=== PATIENT | female | born 1990 | race Caucasian/White ===

== ENCOUNTER 2020-05-14 20:05 | Emergency (ER) | payer MEDICAID ==
[~2020-05-14] VITALS: Ht 160 cm; Wt 68.0 kg
[2020-05-14 20:20] VITALS: Ht 160 cm; Wt 68.0 kg
[2020-05-14] MEDS ORDERED: IBU600 M2 PO (22:15)
[2020-05-14] MEDS ORDERED: FLE10 PO (22:15)
[2020-05-14 22:17] VITALS: BP 104/56
== END 2020-05-14 22:43 | disposition home or self-care (01) ==
LOC: ED 20:05
DX: F41.9 Anxiety disorder, unspecified (principal)